=== PATIENT | male | born 1965 | race Caucasian/White ===

== ENCOUNTER 2024-11-22 11:00 | Inpatient (IN) | payer BC ==
[2024-11-22 11:58] VITALS: BMI 35.3
[2024-12-07] MEDS ORDERED: Acetaminophen 500 MG TAB ONE (06:45)
[2024-12-07] MEDS ORDERED: Ketorolac Tromethamine 30 MG (1 mL) VIAL ONE (06:45)
[2024-12-07] MEDS ORDERED: Ondansetron PF 4 MG/2 ML Vial ONE (06:55)
[2024-12-07] MEDS ORDERED: Lidocaine 1% PF 5 ML VIAL ONE ×2 (06:55→08:36)
[2024-12-07] MEDS ORDERED: SUGAMMADEX SODIUM 200 MG/2 ML VIAL ONE (06:55)
[2024-12-07] MEDS ORDERED: Rocuronium Bromide 10 MG/ML (10ML VIAL) ONE (06:55)
[2024-12-07] MEDS ORDERED: PROPOFOL 40 ML ONE (06:56)
[2024-12-07] MEDS ORDERED: Bupivacaine/Epinephrine 0.25% 30 ML VIAL ONE ×3 (07:18→08:55)
[2024-12-07] MEDS ORDERED: PHENYLEPHRINE-NS 100 MCG/ML 10 ML SYRINGE ONE (07:55)
[2024-12-07] MEDS ORDERED: HYDROcodone/Acetaminophen 7.5/325 mg Tablet PO PRN (07:58)
[2024-12-07] MEDS ORDERED: PROPOFOL 20 ML ONE (10:02)
[2024-12-07] MEDS ORDERED: hydrALAZINE 20 MG/ML VIAL SLOW IVP PRN (16:22)
[2024-12-07] MEDS ORDERED: Ondansetron PF 4 MG/2 ML Vial IVP PRN (16:22)
[2024-12-07] MEDS: Ketorolac Tromethamine 30 MG (1 mL) VIAL IVP SCH (17:42)
[2024-12-07] MEDS: Famotidine/PF 20 mg/2ml Vial SLOW IVP SCH (17:44)
[2024-12-07] MEDS: metFORMIN 500 MG TAB PO SCH (17:45)
[2024-12-07] MEDS: Enoxaparin 40 MG (0.4 mL) SYRINGE SC SCH (20:43)
[2024-12-07] MEDS: Lisinopril 20 MG TAB PO SCH (20:43)
[2024-12-08 04:47] LABS: #Basophils Less than 0.03 10x3/uL (0.0-0.2); #Eosinophils Less than 0.03 10x3/uL (0.0-0.5); #Monocytes 0.97 10x3/uL (0.0-1.1); #Neutrophils 14.38 10x3/uL (1.5-8.4); %Basophils 0.1 % (0.0-2.0); %Eosinophils 0.0 % (0.0-6.0); %Lymphocytes 4.5 % (18.0-47.0); %Monocytes 6.0 % (0.0-10.0); %Neutrophils 89.2 % (40.0-75.0); Hematocrit 40.7 % (38.8-50.0); Hemoglobin 13.6 g/dL (13.5-17.5); Mean Corpuscular Hemoglobin 28.8 pg (27.0-33.0); Mean Corpuscular Volume 86.2 fL (81.2-95.1); Platelet Count 248 10x3/uL (150-450); Red Blood Cell (RBC) Count 4.72 10x6/uL (4.32-5.72); White Blood Cell (WBC) Count 16.12 10x3/uL (3.5-10.5)
[2024-12-08 04:58] LABS: Anion Gap 14 mmol/L (10-20); BUN (Urea Nitrogen) 14 mg/dL (8.4-25.7); Calc. Creatinine Clearance 127 mL/min (70-130); Calcium 7.9 mg/dL (7.8-10.44); Carbon Dioxide 19 mmol/L (23-31); Chloride 108 mmol/L (98-107); Glucose 235 mg/dL (80-115); Potassium 4.3 mmol/L (3.5-5.1); Sodium 137 mmol/L (136-145)
[2024-12-08] MEDS ORDERED: Acetaminophen 325 MG TAB PO PRN (07:58)
[2024-12-08] MEDS ORDERED: Famotidine/PF 20 mg/2ml Vial SLOW IVP PRN (09:00)
[2024-12-08] MEDS: Famotidine 20 MG TAB PO SCH (09:07)
[2024-12-09 08:07] VITALS: BP 125/67; TEMP 97.7
== END 2024-12-09 12:02 | disposition home or self-care (01) | DRG 331 ==
LOC: CSHTELE 12-07 05:45
PROVIDERS: ADMIT Specialist; ATTEND Specialist
PROC: 0DTF4ZZ Resection of Right Large Intestine, Percutaneous Endoscopic Approach (ICD-10-PCS; principal; 2024-12-08)
DX: D12.2 Benign neoplasm of ascending colon (principal); K63.5 Polyp of colon
CPT/HCPCS: 36416; 80048; 85025; 88309; 94760; A4649; C1776; J0694; J1100; J1308; J1650; J1815; J1885; J2405; J2704; J3010; J7030